=== PATIENT | male | born 1995 | race Caucasian/White ===

== ENCOUNTER 2018-01-21 14:46 | Outpatient (CLI) | payer BC ==
--- NOTE | 2018-01-21 17:11 | RAD ---
LUMBAR SPINE THREE VIEWS: Date: 01-21-18 FINDINGS: No fracture, dislocation, or acute bony change was seen. Minimal wedging of L1 is physiologic in this age group. Disc spaces were unremarkable. No anomalies of concern were seen. The SI joints were norm al. IMPRESSION: No acute findings. Incidental changes with mild constipation. POS: HOME
== END 2018-01-21 14:47 | disposition home or self-care (01) ==
LOC: BURRAD 14:46
PROVIDERS: ATTEND Family Medicine
DX: M54.32 Sciatica, left side (principal)
CPT/HCPCS: 72100

== ENCOUNTER 2019-01-19 16:40 | Emergency (ER) | payer BC ==
--- NOTE | 2019-01-19 18:16 | RAD ---
RIGHT HAND THREE VIEWS: 01/19/19 No fracture was seen. The phalanges all appeared intact, as did the MP joints. The carpal relationshi ps appear normal. IMPRESSION: No fracture seen at this time. POS: HOME
== END 2019-01-19 17:13 | disposition home or self-care (01) ==
LOC: BURERS 16:40
DX: S60.221A Contusion of right hand, initial encounter (principal); Z87.891 Personal history of nicotine dependence; W23.0XXA Caught, crushed, jammed, or pinched between moving objects, initial encounter